=== PATIENT | male | born 1955 | race Hispanic/Latino ===

== ENCOUNTER 2020-10-25 18:08 | Emergency (ER) | payer MEDICARE ==
[2020-10-25 19:09] LABS: #Basophils 0.1 thou/uL (0.0-0.2); #Eosinphils 0.1 thou/uL (0.0-0.7); #Lymphocytes 0.3 thou/uL (1.20-3.40); #Monocytes 0.5 thou/uL (0.11-0.59); #Neutrophils 4.8 thou/uL (1.40-6.50); %Basophils 1.5 % (0.0-1.0); %Eosinophils 2.4 % (0.0-10.0); %Lymphocytes 5.5 % (21.0-51.0); %Monocytes 7.9 % (0.0-10.0); %Neutrophils 82.7 % (42.0-75.0); Hemoglobin 13.1 g/dL (14.0-18.0); Mean Corpuscular HGB CONC 30.9 g/dL (32.0-36.0); Mean Corpuscular Hemoglobin 29.6 pg (27.0-31.0); Mean Corpuscular Volume 95.9 fL (78.0-98.0); Mean Platelet Volume 7.3 fL (7.4-10.4); Platelet Count 174 thou/uL (130-400); RBC Distribution Width 12.7 % (11.5-14.5); Red Blood Cell (RBC) Count 4.43 mill/uL (4.70-6.10); White Blood Cell (WBC) Count 5.8 thou/uL (4.8-10.8)
[2020-10-25 19:23] LABS: ALT (SGPT) 27 U/L (8-55); AST (SGOT) 62 U/L (5-34); Albumin 2.8 g/dL (3.4-4.8); Alkaline Phosphatase 249 U/L (40-110); Anion Gap 13 mmol/L (10-20); BUN (Urea Nitrogen) 11 mg/dL (8.4-25.7); Bilirubin, Total 0.8 mg/dL (0.2-1.2); Calc. Creatinine Clearance 0 mL/min (70-130); Calcium 8.1 mg/dL (7.8-10.44); Carbon Dioxide 25 mmol/L (23-31); Chloride 100 mmol/L (98-107); Globulin 4.8 g/dL (2.4-3.5); Glucose 97 mg/dL (80-115); Protein, Total 7.6 g/dL (5.8-8.1); Sodium 134 mmol/L (136-145)
== END 2020-10-25 20:00 | disposition home or self-care (01) ==
LOC: NAV ERS 18:08
DX: T45.1X1A Poisoning by antineoplastic and immunosuppressive drugs, accidental (unintentional), initial encounter (principal); K74.60 Unspecified cirrhosis of liver; Z85.05 Personal history of malignant neoplasm of liver; Z87.891 Personal history of nicotine dependence
CPT/HCPCS: 71046; 80053; 85025

== ENCOUNTER 2021-03-29 17:25 | Emergency (ER) | payer MEDICARE ==
[~2021-03-29 17:25] MED LIST: Iopamidol 370 76% 100 ML VIAL ONE
[2021-03-29 18:14] LABS: INR-International Normal Ratio 1.4
[2021-03-29 18:15] LABS: PTT 41.2 sec (22.9-36.1)
[2021-03-29 18:18] LABS: ALT (SGPT) 28 U/L (8-55); AST (SGOT) 70 U/L (5-34); Albumin 1.6 g/dL (3.4-4.8); Alkaline Phosphatase 189 U/L (40-110); Anion Gap 8 mmol/L (10-20); BUN (Urea Nitrogen) 9 mg/dL (8.4-25.7); Bilirubin, Total 2.7 mg/dL (0.2-1.2); Calc. Creatinine Clearance 0 mL/min (70-130); Calcium 7.9 mg/dL (7.8-10.44); Carbon Dioxide 22 mmol/L (23-31); Chloride 103 mmol/L (98-107); Globulin 6.3 g/dL (2.4-3.5); Glucose 137 mg/dL (80-115); Lipase 109 U/L (8-78); Potassium 3.2 mmol/L (3.5-5.1); Protein, Total 7.9 g/dL (5.8-8.1); Sodium 130 mmol/L (136-145)
[2021-03-29 18:29] LABS: #Basophils 0.1 thou/uL (0.0-0.2); #Eosinphils 0.1 thou/uL (0.0-0.7); #Lymphocytes 0.4 thou/uL (1.20-3.40); #Monocytes 0.3 thou/uL (0.11-0.59); #Neutrophils 2.3 thou/uL (1.40-6.50); %Basophils 1.9 % (0.0-1.0); %Eosinophils 3.6 % (0.0-10.0); %Lymphocytes 13.2 % (21.0-51.0); %Monocytes 9.2 % (0.0-10.0); %Neutrophils 72.1 % (42.0-75.0); Hemoglobin 11.7 g/dL (14.0-18.0); Mean Corpuscular HGB CONC 33.1 g/dL (32.0-36.0); Mean Corpuscular Hemoglobin 34.1 pg (27.0-31.0); Mean Platelet Volume 5.3 fL (7.4-10.4); Platelet Count 135 thou/uL (130-400); RBC Distribution Width 13.4 % (11.5-14.5); Red Blood Cell (RBC) Count 3.43 mill/uL (4.70-6.10); White Blood Cell (WBC) Count 3.1 thou/uL (4.8-10.8)
== END 2021-03-29 19:42 | disposition home or self-care (01) ==
LOC: NAV ERS 17:25
DX: K59.00 Constipation, unspecified (principal); R60.0 Localized edema; Z87.891 Personal history of nicotine dependence
CPT/HCPCS: 74177; 80053; 83605; 83690; 85025; 85610; 85730; Q9967

== ENCOUNTER 2021-07-03 11:22 | Outpatient (CLI) | payer MEDICARE, OTHER | END 2021-07-03 11:23 | disposition home or self-care (01) | LOC: NAV RAD 11:22 | PROVIDERS: ATTEND Family Medicine | DX: U07.1 COVID-19 (principal); R05.9 Cough, unspecified | CPT/HCPCS: 71046 ==